=== PATIENT | female | born 1975 | race Caucasian/White ===

== ENCOUNTER 2018-12-26 11:07 | Observation (INO) ==
[2018-12-26 12:04] LABS: Basophils % 0.6 % (0.0-0.8); Eosinophils # 0.2 10*3/uL (0.0-0.87); Eosinophils % 2.2 % (0.00-10.9); Hematocrit 45.4 VOL% (35.7-47.0); Immature Granulocytes % 0.3 %; Immature Granulocytes Absolute 0.02 #; Lymphocytes # 2.3 10*3/uL (1.4-4.0); Lymphocytes % 33.1 % (21.3-54.2); Mean Corpuscular Volume 90.8 FL (87-102); Mean Platelet Volume 10.6 FL (9.6-12.0); Neutrophils % 56.8 % (38.7-73.9); Platelet Count 206 T/CUMM (130-400); Red Cell Distribution Width 12.9 % (9.3-17.3); White Blood Count 6.8 T/CUMM (4-12)
[2018-12-26 12:12] LABS: Apearance,Urine Slightly Hazy (Clear); Bacteria,Urine Occasional /HPF (Few); Bilirubin,Urine Negative (Negative); Blood, Urine Negative (Negative); Glucose,Urine (UA) >=500 mg/dL (Negative); Ketones,Urine 5 mg/dL (Negative); Mucus,Urine Occasional /LPF (Occasional); Nitrite,Urine Negative (Negative); Protein,Urine Negative; RBC,Urine 5 /HPF (0-4); Squamous Epithelial Cell,Urine Moderate /HPF (0-10); Urine Color Yellow (Yellow); Urine Specific Gravity 1.026 (1.001-1.035); Urine Urobilinogen < 2.0 EU/DL (0.2-1.0); WBC,Urine 5 /HPF (0-6)
[2018-12-26 12:22] LABS: Albumin 3.9 G/DL (3.4-5.0); Bilirubin,Total 0.8 MG/DL (0.2-1.0); Calcium 8.9 MG/DL (8.5-10.1); Osmolality,Calculated 278.1 MOS/KG (273-304); Total Protein 7.8 G/DL (6.4-8.3)
[2018-12-26 16:56] LABS: WBC Wet Mount None Seen /HPF
[2018-12-26 16:57] LABS: Epithelial Cell Wet Mount Few /HPF (Few/HPF)
[2018-12-26] MEDS ORDERED: ONDANSETRON 4 MG/2 ML VIAL IV PRN (18:17)
[2018-12-26] MEDS ORDERED: ACETAMINOPHEN 325 MG TABLET PO PRN (18:17)
[2018-12-26] MEDS ORDERED: HYDROmorphone 2 MG/1 ML VIAL IV PRN (18:17)
[2018-12-26] MEDS ORDERED: PROMETHAZINE 25 MG/1 ML VIAL IM PRN (18:17)
[2018-12-26] MEDS: PIPERACILLIN/TAZOBACTAM 3,375 MG in SODIUM CHLORIDE 0.9% 100 ML IV SCH (18:41)
[2018-12-26] MEDS: INSULIN REGULAR 100 UNIT/ML SUBCUT SCH (21:58)
[2018-12-26] MEDS: PANTOPRAZOLE 40 MG TABLET PO SCH (21:58)
[2018-12-27] MEDS: PIPERACILLIN/TAZOBACTAM 3,375 MG in SODIUM CHLORIDE 0.9% 100 ML IV SCH ×3 (04:15→19:00)
[2018-12-27 05:17] LABS: Basophils % 0.6 % (0.0-0.8); Eosinophils # 0.2 10*3/uL (0.0-0.87); Eosinophils % 2.2 % (0.00-10.9); Hematocrit 43.6 VOL% (35.7-47.0); Hemoglobin 14.3 GM/DL (12.0-16.0); Immature Granulocytes % 0.4 %; Immature Granulocytes Absolute 0.03 #; Lymphocytes # 2.5 10*3/uL (1.4-4.0); Lymphocytes % 36.3 % (21.3-54.2); Mean Corpuscular HGB Conc 32.8 GM/DL (32-36); Mean Platelet Volume 10.7 FL (9.6-12.0); Monocytes % 8.1 % (1.7-12.7); Neutrophils % 52.4 % (38.7-73.9); Platelet Count 227 T/CUMM (130-400); Red Blood Count 4.79 MC/CUMM (3.8-5.5); White Blood Count 6.8 T/CUMM (4-12)
[2018-12-27 05:37] LABS: Calcium 8.7 MG/DL (8.5-10.1)
[2018-12-27] MEDS: LACTATED RINGERS 1,000 ML IV SCH ×2 (06:16→14:00)
[2018-12-27] MEDS: INSULIN REGULAR 100 UNIT/ML SUBCUT SCH ×3 (07:30→17:10)
[2018-12-27] MEDS: PANTOPRAZOLE 40 MG TABLET PO SCH (09:00)
[2018-12-27] MEDS ORDERED: DEXTROSE 50% 25 GM/50 ML VIAL IV PRN (10:22)
[2018-12-27] MEDS ORDERED: GLUCAGON 1 MG VIAL IM PRN (10:22)
[2018-12-27 10:52] LABS: Albumin 3.6 G/DL (3.4-5.0); Bilirubin,Direct 0.15 MG/DL (0.0-0.20); Bilirubin,Indirect 0.6 MG/DL (0.0-1.0); Bilirubin,Total 0.7 MG/DL (0.2-1.0)
[2018-12-27] MEDS ORDERED: BUPIVACAINE 0.25% /EPI 10 ML VIAL ONE (13:26)
[2018-12-27] MEDS ORDERED: TISSUE ADHESIVE 1 EACH APPLICATOR TOP ONE (13:27)
[2018-12-27] MEDS ORDERED: LIDOCAINE MPF 1% /EPI 30 ML VIAL ONE (13:27)
[2018-12-27] MEDS ORDERED: BUPIVACAINE 0.5% 50 ML VIAL ONE (15:04)
[2018-12-27] MEDS ORDERED: HYDROmorphone 2 MG/1 ML VIAL IV PRN (15:07)
[2018-12-27] MEDS ORDERED: ONDANSETRON 4 MG/2 ML VIAL IV PRN (15:07)
[2018-12-27] MEDS ORDERED: DEXAMETHASONE 4 MG/1 ML VIAL ONE (15:11)
[2018-12-27] MEDS ORDERED: ONDANSETRON 4 MG/2 ML VIAL ONE ×2 (15:11→15:40)
[2018-12-27] MEDS ORDERED: HYDROmorphone 2 MG/1 ML VIAL ONE (15:11)
[2018-12-27] MEDS ORDERED: fentaNYL 100 MCG/2 ML VIAL ONE (15:40)
[2018-12-27] MEDS ORDERED: MIDAZOLAM 2 MG/2 ML VIAL ONE (15:40)
[2018-12-27] MEDS ORDERED: SEVOFLURANE 1 UNIT/15 MINUTE INH ONE (15:40)
[2018-12-27] MEDS ORDERED: PROPOFOL 200 MG/20 ML VIAL IV ONE (15:40)
[2018-12-27] MEDS ORDERED: GLYCOPYRROLATE 0.4 MG/2 ML VIAL ONE (15:41)
[2018-12-27] MEDS ORDERED: ROCURONIUM 100 MG/10 ML VIAL IV ONE (15:41)
[2018-12-27] MEDS ORDERED: KETOROLAC 30 MG/1 ML VIAL ONE (15:41)
[2018-12-27] MEDS ORDERED: NEOSTIGMINE 10 MG/10 ML VIAL ONE (15:41)
[2018-12-27 16:01] VITALS: BP 117/82
== END 2018-12-27 19:30 | disposition home or self-care (01) ==
LOC: N.ED 11:07 → N.EDINP 11:07 → N.3E 17:54
PROVIDERS: ADMIT Nurse Practitioner Family; ATTEND Surgery